=== PATIENT | female | born 1945 | race Caucasian/White ===

== ENCOUNTER 2018-09-26 17:33 | Inpatient (IN) | END 2018-09-27 14:58 | disposition home or self-care (01) | DRG 292 ==

== ENCOUNTER 2019-09-05 20:10 | Inpatient (IN) | payer MEDICARE, OTHER ==
[~2019-09-05] VITALS: Ht 152.4 cm; Wt 91.0 kg
[~2019-09-05 20:10] MED LIST: ASPI81TA52 PO; AZIL80TA PO; BUDE6HFA ORAL; BUSP5TAB2 ORAL; CARV25TA79 ORAL; CLOP75TA28 ORAL; CRIS60OI SUBD; DICL100G37 SUBDERMAL; FURO40TA4 PO; HYDR100T25 PO; INSU200I4 SQ; ISOS60TA PO; IVAB5TAB ORAL; LIRA0.6P2 SQ; LORA-444 PO; NOVO3I SC
[2019-09-05 23:30] VITALS: BP 152/69; PULSE 76; RESP 18
[2019-09-06 00:30] VITALS: Ht 152.4 cm; Wt 91.0 kg
[2019-09-06] MEDS ORDERED: morphine 2 MG INJ IV PRN (01:30)
[2019-09-06] MEDS ORDERED: ONDANSETRON (ODT) 4 MG TAB ODT PRN (01:30)
[2019-09-06] MEDS ORDERED: ACETAMINOPHEN 325 MG TAB PO PRN (01:30)
[2019-09-06] MEDS ORDERED: LORAZEPAM 1 MG TAB PO PRN (01:30)
[2019-09-06] MEDS ORDERED: NALOXONE (0.4 MG/ML) INJ IV PRN (01:30)
[2019-09-06] MEDS ORDERED: NACL 0.9% 3 ML SYG IV PRN (01:30)
[2019-09-06] MEDS ORDERED: LORAZEPAM 2 MG INJ IV PRN (01:30)
[2019-09-06] MEDS ORDERED: hydrALAzine 20 MG INJ IV PRN (01:30)
[2019-09-06 02:00] VITALS: BP 158/64; PULSE 88; RESP 18
[2019-09-06] MEDS ORDERED: LACTULOSE 30ML CUP PO PRN (02:00)
[2019-09-06] MEDS ORDERED: BISACODYL 10 MG SUPP PR PRN (02:00)
[2019-09-06] MEDS ORDERED: DOCUSATE SODIUM 100 MG CAP PO PRN (02:00)
[2019-09-06] MEDS: ACCU-CHEK XX SCH (02:28)
[2019-09-06] MEDS ORDERED: GLUCOSE GEL 15 GRAM TUBE BUCCAL PRN (02:30)
[2019-09-06] MEDS ORDERED: DEXTROSE 50% 50 ML SYRINGE IV PRN ×2 (02:30)
[2019-09-06] MEDS ORDERED: GLUCAGON 1 MG INJ IM PRN (02:30)
[2019-09-06] MEDS ORDERED: GLUCOSE GEL 15 GRAM TUBE PO PRN ×2 (02:30)
[2019-09-06] MEDS: FUROSEMIDE 40 MG TAB PO SCH ×2 (06:29→17:44)
[2019-09-06 07:30] VITALS: BP 144/79; PULSE 82; RESP 20
[2019-09-06] MEDS: INSULIN ASPART [NOVOLOG] 3 ML PEN SC SCH ×7 (07:35→22:00)
[2019-09-06] MEDS: ENOXAPARIN 40 MG/0.4 ML SYG SC SCH (08:26)
[2019-09-06] MEDS: POLYETHYLENE GLYCOL 17 GM PACKET PO SCH ×2 (08:29→22:00)
[2019-09-06] MEDS: AMLODIPINE 5 MG TAB PO SCH (08:31)
[2019-09-06] MEDS: ISOSORBIDE MONONITRATE(SR)60 MG TAB PO SCH (08:33)
[2019-09-06] MEDS: HYDROCODONE/APAP (10/325) TAB PO PRN (08:34)
[2019-09-06] MEDS ORDERED: NYSTATIN 15 GM POWDER BTL TOP SCH (09:00)
[2019-09-06] MEDS ORDERED: NYSTATIN 30 GM POWDER BTL TOP SCH (09:00)
[2019-09-06] MEDS: TRESIBA FLEXTOUCH SC SCH (09:38)
[2019-09-06 14:00] VITALS: BP 109/51; PULSE 87; RESP 18
[2019-09-06 17:44] VITALS: BP 130/61
[2019-09-06 21:37] VITALS: BP 138/65; PULSE 85; RESP 18
[2019-09-07 02:00] VITALS: BP 132/60; PULSE 77; RESP 18
[2019-09-07] MEDS: ACCU-CHEK XX SCH (02:00)
[2019-09-07] MEDS: FUROSEMIDE 40 MG TAB PO SCH ×2 (06:46→17:31)
[2019-09-07 07:00] VITALS: BP 174/64; PULSE 79; RESP 18
[2019-09-07] MEDS: INSULIN ASPART [NOVOLOG] 3 ML PEN SC SCH ×7 (07:35→21:54)
[2019-09-07] MEDS: ISOSORBIDE MONONITRATE(SR)60 MG TAB PO SCH (08:36)
[2019-09-07] MEDS: AMLODIPINE 5 MG TAB PO SCH (08:36)
[2019-09-07] MEDS: ENOXAPARIN 40 MG/0.4 ML SYG SC SCH (08:37)
[2019-09-07] MEDS: BETAMETHASONE/CLOTRIMAZOLE 15 GM CR TOP SCH (08:37)
[2019-09-07] MEDS: TRESIBA FLEXTOUCH SC SCH (08:38)
[2019-09-07] MEDS: POLYETHYLENE GLYCOL 17 GM PACKET PO SCH ×2 (09:00→21:00)
[2019-09-07] MEDS: HYDROCODONE/APAP (10/325) TAB PO PRN (11:14)
[2019-09-07 14:00] VITALS: BP 168/76; PULSE 72; RESP 18
[2019-09-07] MEDS: LORAZEPAM 0.5 MG TAB PO PRN (21:50)
[2019-09-08 02:00] VITALS: BP 160/72; PULSE 66; RESP 18
[2019-09-08] MEDS: ACCU-CHEK XX SCH (02:00)
[2019-09-08 06:15] VITALS: BP 159/70; PULSE 65
[2019-09-08] MEDS: FUROSEMIDE 40 MG TAB PO SCH ×2 (06:29→17:21)
[2019-09-08 07:30] VITALS: BP 162/60; PULSE 62; RESP 18
[2019-09-08] MEDS: INSULIN ASPART [NOVOLOG] 3 ML PEN SC SCH ×7 (07:35→21:00)
[2019-09-08] MEDS: POLYETHYLENE GLYCOL 17 GM PACKET PO SCH ×2 (08:03→21:06)
[2019-09-08] MEDS: AMLODIPINE 5 MG TAB PO SCH (08:04)
[2019-09-08] MEDS: ISOSORBIDE MONONITRATE(SR)60 MG TAB PO SCH (08:04)
[2019-09-08] MEDS: HYDROCODONE/APAP (10/325) TAB PO PRN ×2 (08:05→14:22)
[2019-09-08] MEDS: TRESIBA FLEXTOUCH SC SCH (08:07)
[2019-09-08] MEDS: ENOXAPARIN 40 MG/0.4 ML SYG SC SCH (08:08)
[2019-09-08] MEDS: BETAMETHASONE/CLOTRIMAZOLE 15 GM CR TOP SCH (09:00)
[2019-09-08 14:00] VITALS: BP 151/63; PULSE 78; RESP 20
[2019-09-08 19:47] VITALS: BP 157/67; PULSE 68; RESP 18
[2019-09-08] MEDS: LORAZEPAM 0.5 MG TAB PO PRN (21:04)
[2019-09-09] MEDS: HYDROCODONE/APAP (10/325) TAB PO PRN ×2 (00:03→14:55)
[2019-09-09 02:00] VITALS: BP 141/64; PULSE 72; RESP 18
[2019-09-09] MEDS: ACCU-CHEK XX SCH (02:00)
[2019-09-09] MEDS: FUROSEMIDE 40 MG TAB PO SCH ×2 (06:35→17:51)
[2019-09-09 07:00] VITALS: BP 182/56; PULSE 79; RESP 18
[2019-09-09] MEDS: INSULIN ASPART [NOVOLOG] 3 ML PEN SC SCH ×7 (07:35→20:52)
[2019-09-09] MEDS: ENOXAPARIN 40 MG/0.4 ML SYG SC SCH (09:48)
[2019-09-09] MEDS: ISOSORBIDE MONONITRATE(SR)60 MG TAB PO SCH (09:50)
[2019-09-09] MEDS: AMLODIPINE 5 MG TAB PO SCH (09:50)
[2019-09-09] MEDS: POLYETHYLENE GLYCOL 17 GM PACKET PO SCH ×2 (09:51→20:46)
[2019-09-09] MEDS: BETAMETHASONE/CLOTRIMAZOLE 15 GM CR TOP SCH (09:51)
[2019-09-09] MEDS: TRESIBA FLEXTOUCH SC SCH (09:51)
[2019-09-09 14:00] VITALS: BP 170/72; PULSE 84; RESP 19
[2019-09-09 17:51] VITALS: BP 130/65; PULSE 93
[2019-09-09 19:00] VITALS: BP 128/60; RESP 19
[2019-09-09 21:56] VITALS: BP 138/64; PULSE 66
[2019-09-09] MEDS: LORAZEPAM 0.5 MG TAB PO PRN (21:56)
[2019-09-10 01:54] VITALS: BP 156/67; PULSE 79; RESP 18
[2019-09-10] MEDS: ACCU-CHEK XX SCH (02:16)
[2019-09-10 06:39] VITALS: BP 177/77; PULSE 77
[2019-09-10] MEDS: FUROSEMIDE 40 MG TAB PO SCH ×2 (06:39→17:38)
[2019-09-10 07:00] VITALS: BP 163/71; PULSE 81; RESP 18
[2019-09-10] MEDS: INSULIN ASPART [NOVOLOG] 3 ML PEN SC SCH ×7 (07:35→20:08)
[2019-09-10] MEDS: POLYETHYLENE GLYCOL 17 GM PACKET PO SCH ×2 (09:00→20:08)
[2019-09-10] MEDS: BETAMETHASONE/CLOTRIMAZOLE 15 GM CR TOP SCH (09:00)
[2019-09-10] MEDS: TRESIBA FLEXTOUCH SC SCH (09:13)
[2019-09-10] MEDS: AMLODIPINE 5 MG TAB PO SCH (09:17)
[2019-09-10] MEDS: ISOSORBIDE MONONITRATE(SR)60 MG TAB PO SCH (09:18)
[2019-09-10] MEDS: ENOXAPARIN 40 MG/0.4 ML SYG SC SCH (09:19)
[2019-09-10 14:00] VITALS: BP 149/68; PULSE 70; RESP 18
[2019-09-10 20:00] VITALS: BP 133/60; PULSE 82; RESP 18
[2019-09-10] MEDS: HYDROCODONE/APAP (10/325) TAB PO PRN (20:03)
[2019-09-10] MEDS: LORAZEPAM 0.5 MG TAB PO PRN (21:51)
[2019-09-10 21:52] VITALS: BP 145/65; PULSE 86
[2019-09-11] MEDS: ACCU-CHEK XX SCH (02:30)
[2019-09-11 06:14] VITALS: BP 159/70; PULSE 79
[2019-09-11] MEDS: FUROSEMIDE 40 MG TAB PO SCH ×2 (06:14→17:36)
[2019-09-11 07:00] VITALS: BP 181/74; PULSE 64; RESP 18
[2019-09-11] MEDS: INSULIN ASPART [NOVOLOG] 3 ML PEN SC SCH ×6 (07:35→21:00)
[2019-09-11] MEDS: AMLODIPINE 5 MG TAB PO SCH (08:37)
[2019-09-11] MEDS: ISOSORBIDE MONONITRATE(SR)60 MG TAB PO SCH (08:39)
[2019-09-11] MEDS: HYDROCODONE/APAP (10/325) TAB PO PRN (08:39)
[2019-09-11] MEDS: TRESIBA FLEXTOUCH SC SCH (08:40)
[2019-09-11] MEDS: ENOXAPARIN 40 MG/0.4 ML SYG SC SCH (08:46)
[2019-09-11] MEDS: BETAMETHASONE/CLOTRIMAZOLE 15 GM CR TOP SCH (09:00)
[2019-09-11] MEDS: POLYETHYLENE GLYCOL 17 GM PACKET PO SCH ×2 (09:00→21:00)
[2019-09-11] MEDS ORDERED: AMLODIPINE 5 MG TAB PO ONE (12:30)
[2019-09-11 14:00] VITALS: BP 152/70; PULSE 81; RESP 18
[2019-09-11 20:34] VITALS: BP 159/70; PULSE 80; RESP 19
[2019-09-11 22:00] VITALS: BP 150/68; PULSE 77
[2019-09-11] MEDS: LORAZEPAM 0.5 MG TAB PO PRN (22:02)
[2019-09-12] MEDS: HYDROCODONE/APAP (10/325) TAB PO PRN (01:57)
[2019-09-12 02:00] VITALS: BP 154/76; PULSE 79; RESP 18
[2019-09-12] MEDS: ACCU-CHEK XX SCH (02:00)
[2019-09-12 03:00] VITALS: BP 163/74; PULSE 75
[2019-09-12 05:56] VITALS: BP 163/74; PULSE 75
[2019-09-12] MEDS: FUROSEMIDE 40 MG TAB PO SCH (05:56)
[2019-09-12] MEDS: INSULIN ASPART [NOVOLOG] 3 ML PEN SC SCH ×2 (07:35→12:02)
[2019-09-12] MEDS: POLYETHYLENE GLYCOL 17 GM PACKET PO SCH (09:00)
[2019-09-12] MEDS: BETAMETHASONE/CLOTRIMAZOLE 15 GM CR TOP SCH (09:00)
[2019-09-12] MEDS ORDERED: AMLODIPINE 5 MG TAB PO SCH (09:00)
[2019-09-12] MEDS: TRESIBA FLEXTOUCH SC SCH (09:11)
[2019-09-12] MEDS: ENOXAPARIN 40 MG/0.4 ML SYG SC SCH (09:13)
[2019-09-12] MEDS: ISOSORBIDE MONONITRATE(SR)60 MG TAB PO SCH (09:16)
[2019-09-12 14:00] VITALS: BP 137/60; PULSE 65; RESP 18
== END 2019-09-12 15:15 | disposition home health service (06) | DRG 560 ==
LOC: VRC 23:30
PROVIDERS: ADMIT Physical Medicine & Rehabilitation; ATTEND Internal Medicine Pulmonary Disease
PROC: F07Z5ZZ Bed Mobility Treatment (ICD-10-PCS; principal; 2019-09-05)
PROC: F08Z2ZZ Grooming/Personal Hygiene Treatment (ICD-10-PCS; 2019-09-05)
DX: S82.842D Displaced bimalleolar fracture of left lower leg, subsequent encounter for closed fracture with routine healing (principal); I50.30 Unspecified diastolic (congestive) heart failure; G89.18 Other acute postprocedural pain; W19.XXXD Unspecified fall, subsequent encounter; I11.0 Hypertensive heart disease with heart failure; E11.9 Type 2 diabetes mellitus without complications; E66.9 Obesity, unspecified; Z68.39 Body mass index [BMI] 39.0-39.9, adult; E78.5 Hyperlipidemia, unspecified; Z74.09 Other reduced mobility; Z79.4 Long term (current) use of insulin
CPT/HCPCS: 80053; 81001; 82962; 85025; 87081; 87086; 97110; 97112; 97116; 97150; 97161; 97166; 97530; 97535; 97542; J1650; J1815; J2060